=== PATIENT | female | born 1960 | race Two or more races ===

== ENCOUNTER 2019-04-10 16:52 | Emergency (ER) | payer OTHER ==
[~2019-04-10] VITALS: Ht 152.4 cm; Wt 72.6 kg
--- NOTE | 2019-04-10 17:37 | NUR ---
Patient discharged to home in stable conditon. Written and verbal after care instructions given to patient. Patient verbalizes understanding of instructions.
== END 2019-04-10 17:38 | disposition home or self-care (01) ==
LOC: ER 16:56
DX: S90.122A Contusion of left lesser toe(s) without damage to nail, initial encounter (principal); E11.9 Type 2 diabetes mellitus without complications; Z88.0 Allergy status to penicillin; X50.1XXA Overexertion from prolonged static or awkward postures, initial encounter; Y93.89 Activity, other specified; Y92.89 Other specified places as the place of occurrence of the external cause; Y99.8 Other external cause status
CPT/HCPCS: 73630; A4663